=== PATIENT | male | born 1990 ===

== ENCOUNTER 2017-03-21 13:26 | Emergency (ER) | payer MEDICAID ==
[2017-03-21] MEDS ORDERED: Sodium Chloride 0.9% 1,000 ML IV STA (14:17)
--- NOTE | 2017-03-21 14:19 | C.PDOC ---
History Of Present Illness 26 y/o M c no PMHx p/w fever x 4 days. Fever Tmax 103. Reports body aches, sore throat, congestion, nausea, vomiting, diarrhea, fatigue. Denies recent travel, sick contacts, rash, abdominal pain, dyspnea. Time Seen by Provider: 03/21/17 14:07 Chief Complaint (Nursing): Flu-like Symptoms Past Medical History Vital Signs: Last Vital Signs Temp 99 F 03/21/17 16:33 Pulse 100 H 03/21/17 16:33 Resp 16 03/21/17 16:33 BP 124/75 03/21/17 16:33 Pulse Ox 99 03/21/17 16:33 Family History: States: No Known Family Hx - Social History Hx Alcohol Use: No Hx Substance Use: No - Immunization History Hx Tetanus Toxoid Vaccination: No Hx Influenza Vaccination: No Hx Pneumococcal Vaccination: No Review Of Systems Except As Marked, All Systems Reviewed And Found Negative. Respiratory: Negative for: Shortness of Breath Gastrointestinal: Negative for: Abdominal Pain Physical Exam - Physical Exam Additional Physical Exam Comments: Gen: Appears uncomfortable. Head: NC/AT Eyes: PERRL ENT: MMM. No tonsillar swelling or exudates. Neck: Supple. No rigidity. Chest: No tenderness CV: Tachycardic rate Lungs: CTA b/l Abd: Soft, NT, ND Skin: No rash. Warm to touch. Back: No CVA tenderness Extremities: FROM x 4. No swelling or deformity Neuro: Alert, no focal deficit ED Course And Treatment O2 Sat by Pulse Oximetry: 95 Medical Decision Making Medical Decision Making: Patient with influenza like symptoms, out of window for Tamiflu treatment. Will treat this young, healthy patient supportively. IVF 1 L bolus, Zofran, continue hydration and Zofran and anti-inflammatories at home, f/u primary care, return to ED for worsening vomiting, dyspnea, abdominal pain, dysuria, or any other problem. Temperature and HR normalized after 1 bolus. Disposition - Disposition Referrals: Becky Steward MD [Medical Doctor] - Disposition: HOME/ ROUTINE Disposition Time: 16:43 Condition: STABLE Prescriptions: Benzonatate [Tessalon Perles] 200 mg PO TID #30 sgl Famotidine/Ca Carb/Mag Hydrox [Pepcid Complete Tablet Chew] 1 each PO BID #28 tab.chew Ibuprofen [Motrin] 600 mg PO Q6 #25 tab Ondansetron ODT [Zofran ODT] 4 mg PO Q8 #12 odt Instructions: Influenza (ED) Forms: [facility] (Dive[place]), Work Excuse - Clinical Impression Clinical Impression: Influenza-like illness
[2017-03-21 16:34] VITALS: BP 124/75; PULSE 100; RESP 16; TEMP 99
[2017-03-21 16:44] VITALS: O2SAT 95
== END 2017-03-21 16:51 | disposition home or self-care (01) ==
LOC: C.ER 13:26
DX: J11.1 Influenza due to unidentified influenza virus with other respiratory manifestations (principal)
CPT/HCPCS: 96361; 96374; 99284; J2405; J7040